=== PATIENT | male | born 1965 | race Caucasian/White ===

== ENCOUNTER 2016-11-24 20:50 | Emergency (ER) | payer OTHER ==
[2016-11-24 21:53] LABS: CHLORIDE,CL 107 mmol/L (98-110); SODIUM,NA 140 mmol/L (136-146)
[2016-11-24 23:48] VITALS: BP 122/84
--- NOTE | 2016-11-25 02:12 | EDM.PDOC ---
ED HPI NEURO - General Chief Complaint: Neuro Symptoms/Deficits Stated Complaint: POSSIBLE STROKE Time Seen by Provider: 11/24/16 20:52 Source of Information: Reports: Patient History Limitations: Reports: No limitations - History of Present Illness INITIAL COMMENTS - FREE TEXT/NARRATIVE: HISTORY AND PHYSICAL: History of present illness: [51-year-old male with a history of anxiety and depression now presents emergency department concerned about transient visual changes. Patient states he was watching TV earlier tonight when he had sudden transient blurry vision in his right eye. Is now resolved and his vision is normal and baseline for him. No speech changes no weakness no difficulty with coordination, no facial droop. Patient able to ambulate without difficulty his strength sensation coordination is all normal. Patient states he was still in See well his vision was just blurry for a second. Review of systems per history of present illness otherwise unremarkable Past medical history: As per history of present illness and as reviewed below otherwise noncontributory. Surgical history: As per history of present illness and as reviewed below otherwise noncontributory. Social history: No reported history of drug or alcohol abuse. Family history: As per history of present illness and as reviewed below otherwise noncontributory. Physical exam: Patient mildly anxious alert and communicative normal funduscopic exam bilateral normal reactive pupils. Baseline vision per patient HEENT: Atraumatic, normocephalic, pupils reactive, negative for conjunctival pallor or scleral icterus, mucous membranes moist, throat clear, neck supple, nontender, trachea midline. Lungs: Clear to auscultation, breath sounds equal bilaterally, chest nontender. Heart: S1S2, regular, negative for clicks, rubs, or JVD. Abdomen: Soft, nondistended, nontender. Negative for masses or hepatosplenomegaly. Negative for costovertebral tenderness. Pelvis: Stable nontender. Genitourinary: Deferred. Rectal: Deferred. Extremities: Atraumatic, negative for cords or calf pain. Neurovascular unremarkable. Neuro: Awake, alert, oriented. Cranial nerves II through XII unremarkable. Cerebellum unremarkable. Motor and sensory unremarkable throughout. Exam nonfocal. Diagnostics: [] Therapeutics: [] Impression: [] Plan: [Signs and symptoms consistent with transient blurry vision. No evidence of CVA. CT negative. Exam normal. Vision baseline after transient blurriness. Patient with clearly contributory anxiety component to his presentation and he is obviously worried about the fact that his father had a stroke. Encourage patient to talk with his DrLavinia and followup as an outpatient for further workup of stroke risk factors. He agrees with outpatient followup and strict return precautions given] Definitive disposition and diagnosis as appropriate pending reevaluation and review of above. - Related Data Allergies/ADRs: Allergies Allergy/AdvReac Type Severity Reaction Status Date / Time No Known Allergies Allergy Verified 11/24/16 20:58 Home Meds: Home Meds QUEtiapine Fumarate [Seroquel] 400 mg PO BEDTIME 03/17/16 [History] Temazepam 30 mg PO BEDTIME 03/17/16 [History] buPROPion [Wellbutrin] 100 mg PO BEDTIME 03/17/16 [History] Past Medical History HEENT History: Reports: Allergic rhinitis Cardiovascular History: Reports: None Respiratory History: Reports: Other (see below) Other Respiratory History: Bronchitis & Pneumonia Gastrointestinal History: Reports: None Genitourinary History: Reports: None Musculoskeletal History: Reports: None Neurological History: Reports: None Psychiatric History: Reports: Anxiety, Depression Endocrine/Metabolic History: Reports: None Hematologic History: Reports: None Immunologic History: Reports: None Oncologic (Cancer) History: Reports: None Dermatologic History: Reports: None - Infectious Disease History Infectious Disease History: Reports: None - Past Surgical History Head Surgeries/Procedures: Reports: None HEENT Surgical History: Reports: Oral surgery Cardiovascular Surgical History: Reports: None Respiratory Surgical History: Reports: None GI Surgical History: Reports: None Male Surgical History: Reports: None Oncologic Surgical History: Reports: None Dermatological Surgical History: Reports: None - History Comment History Comment: etoh "1x a month" Social & Family History - Family History Family Medical History: Noncontributory Cardiac: Reports: Other (see below) Other Cardiac Family History: Mother have cardiac problem - Tobacco Use Smoking Status *Q: Never Smoker - Caffeine Use Caffeine Use: Reports: Soda - Recreational Drug Use Recreational Drug Use: No Drug Use in Last 12 Months: No ED ROS GENERAL - Review of Systems Review Of Systems: See Below (Per history of present illness) ED EXAM, NEURO - Physical Exam Exam: See Below (Per history of present illness) Course - Vital Signs Last Recorded V/S: Last Vital Signs Temp 36.6 C 11/24/16 22:50 Pulse 62 11/24/16 22:50 Resp 16 05/04/17 22:50 BP 122/84 11/24/16 22:50 Pulse Ox 99 11/24/16 22:50 - Orders/Labs/Meds Orders: Active Orders 24 hr Category Date Time Status EKG Documentation Completion [RC] STAT Care 11/24/16 21:12 Active Head wo Cont [CT] Stat Exams 11/24/16 21:12 Taken Peripheral IV Insertion Adult [OM.PC] Stat Oth 11/24/16 21:12 Ordered Labs: Laboratory Tests 11/24/16 11/24/16 11/24/16 Range/Units 21:20 21:20 21:20 WBC 5.65 (4.0-11.0) K/uL RBC 4.96 (4.50-5.90) M/uL Hgb 14.1 (13.0-17.0) g/dL Hct 42.8 (38.0-50.0) % MCV 86.3 (80.0-98.0) fL MCH 28.4 (27.0-32.0) pg MCHC 32.9 (31.0-37.0) g/dL RDW Std Deviation 41.5 (28.0-62.0) fl RDW Coeff of Zoë 13 (11.0-15.0) % Plt Count 266 (150-400) K/uL MPV 9.50 (7.40-12.00) fL Neut % (Auto) 52.2 (48.0-80.0) % Lymph % (Auto) 34.5 (16.0-40.0) % Iron % (Auto) 11.2 (0.0-15.0) % Eos % (Auto) 1.9 (0.0-7.0) % Baso % (Auto) 0.2 (0.0-1.5) % Neut # (Auto) 3.0 (1.4-5.7) K/uL Lymph # (Auto) 2.0 (0.6-2.4) K/uL Iron # (Auto) 0.6 (0.0-0.8) K/uL Eos # (Auto) 0.1 (0.0-0.7) K/uL Baso # (Auto) 0.0 (0.0-0.1) K/uL Nucleated RBC % 0.0 /100WBC Nucleated RBCs # 0 K/uL Sodium 140 (136-146) mmol/L Potassium 3.5 (3.5-5.1) mmol/L Chloride 107 (98-110) mmol/L Carbon Dioxide 20 L (21-31) mmol/L BUN 18 (6.0-23.0) mg/dL Creatinine 0.9 (0.6-1.5) mg/dL Est Cr Clr Drug Dosing 111.63 mL/min Estimated GFR (MDRD) > 60.0 ml/min Glucose 114 H (60-110) mg/dL Calcium 9.5 (8.8-10.8) mg/dL Total Bilirubin 0.4 (0.1-1.5) mg/dL AST 26 (5-40) IU/L ALT 49 (8-54) IU/L Alkaline Phosphatase 98 (40-150) Troponin I < 0.10 (0.0-0.29) NG/ML Total Protein 7.2 (6.0-8.0) g/dL Albumin 4.1 (3.5-5.0) g/dL Globulin 3.1 (2.0-3.5) g/dL Albumin/Globulin Ratio 1.3 (1.3-2.8) Departure - Departure Time of Disposition: 22:45 Disposition: Home, Self-Care 01 Condition: good Clinical Impression: Visual changes, Anxiety Instructions: Panic Attacks, [id number] Referrals: Kalia Valerio MD [Primary Care Provider] - Forms: ED Department Discharge - My Orders Last 24 Hours: My Active Orders 11/24/16 21:12 EKG Documentation Completion [RC] STAT Head wo Cont [CT] Stat Peripheral IV Insertion Adult [OM.PC] Stat - Assessment/Plan Last 24 Hours: My Active Orders 11/24/16 21:12 EKG Documentation Completion [RC] STAT Head wo Cont [CT] Stat Peripheral IV Insertion Adult [OM.PC] Stat
--- NOTE | 2016-11-25 16:11 | CT ---
EXAM DATE: 11/24/16 PATIENT'S AGE: 51 Patient: MINOR GODFREY Facility: [place], [place] Site . Site : [id number] Study: CT Head WO CONT [id number]/4/2017 9:37:35 PM Ordering Physician: Avila Love Final Report: INDICATION: TINGLING SENSATION AND NUMBNESS TO RIGHT SIDE OF BODY TECHNIQUE: CT Head without contrast. COMPARISON: 04/22/2012. FINDINGS: There is no sign of intracranial hemorrhage or mass effect. Ventricles and sulci are symmetric and midline. The pozo-white differentiation is preserved. Mucoperiosteal thickening of the imaged right maxillary sinus. No acute disease of the mastoid air cells. Remote right medial orbital wall fracture. No scalp hematoma/laceration. IMPRESSION: No acute intracranial process. Dictated by: Jerardo Valdivia MD @ 11/24/2016 21:54:23 (Electronic Signature) Report Signed by Proxy. [facility]
== END 2016-11-24 22:51 | disposition home or self-care (01) ==
LOC: MW.ED 20:50
DX: H53.8 Other visual disturbances (principal); F41.9 Anxiety disorder, unspecified; F32.9 Major depressive disorder, single episode, unspecified
CPT/HCPCS: 36415; 70450; 70450-26; 80053; 84484; 85025; 93005; 99283; 99284-25